=== PATIENT | female | born 1985 ===

== ENCOUNTER → 2024-09-21 14:11 | Outpatient (REF) | payer BC, SELFPAY ==
[2024-09-24 00:33] LABS: HPV, High Risk Not Detected; HPV, High Risk Source Anal
== END ==
LOC: CLAB 14:11
PROVIDERS: ATTENDING PHYSICIAN Surgery
DX: Z87.410 Personal history of cervical dysplasia (principal)
CPT/HCPCS: 87624; 88112

== ENCOUNTER 2024-12-01 06:18 | Day surgery (SDC) | payer BC, SELFPAY | END 2024-12-01 10:18 | disposition home or self-care (01) | LOC: GI 06:18 | PROVIDERS: ATTENDING PHYSICIAN Surgery | DX: K62.5 Hemorrhage of anus and rectum (principal); K64.8 Other hemorrhoids; D12.3 Benign neoplasm of transverse colon; K63.5 Polyp of colon; Z83.719 Family history of colon polyps, unspecified; Z80.0 Family history of malignant neoplasm of digestive organs | CPT/HCPCS: 45385; 45380; 88305 ==

== ENCOUNTER → 2024-12-16 14:28 | Outpatient (REF) | payer BC, SELFPAY | LOC: CLAB 14:28 | PROVIDERS: ATTENDING PHYSICIAN Surgery | DX: R85.610 Atypical squamous cells of undetermined significance on cytologic smear of anus (ASC-US) (principal); B97.7 Papillomavirus as the cause of diseases classified elsewhere | CPT/HCPCS: 88305 ==